=== PATIENT | male | born 2000 | race African-American/Black ===

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

== ENCOUNTER 2023-02-03 18:25 | Emergency (ER) | payer BC, OTHER ==
[~2023-02-03] VITALS: Ht 180.3 cm; Wt 79.0 kg
[~2023-02-03 18:25] MED LIST: BICT1TAB3; CIPR500S3 MT; METR-167 MT
[2023-02-03 18:34] VITALS: O2SAT 99
[2023-02-03] MEDS ORDERED: IBUPROFEN 600MG TABLET PO ONE (20:00)
[2023-02-03 20:07] VITALS: BP 144/91
[2023-02-03 20:39] LABS: BASOPHILS % 0.3 % (0.0-2.0); EOSINOPHILS % 1.2 % (0.0-5.0); HEMATOCRIT. 48.4 % (42.0-52.0); HEMOGLOBIN. 16.2 g/dL (14.0-18.0); LYMPHOCYTES % 38.5 % (20.0-50.0); MEAN CORPUSCULAR HEMOGLOBIN 29.1 pg (28.0-32.0); MEAN CORPUSCULAR HGB CONC 33.4 g/dL (31.0-37.0); MEAN CORPUSCULAR VOLUME 87.2 fL (80.0-94.0); MEAN PLATELET VOLUME 8.9 fl (7.4-10.4); MONOCYTES % 12.4 % (2.0-8.0); NEUTROPHILS % 47.6 % (40.0-76.0); PLATELET 301 x1000/uL (130-400); RED BLOOD CELL COUNT 5.55 mill/uL (4.7-6.1); RED CELL DISTRIBUTION WIDTH 13.8 % (11.6-14.6); WHITE BLOOD COUNT 8.2 x1000/uL (4.5-11.0)
[2023-02-03 20:48] LABS: CHLORIDE 104 mEq/L (98-107); INDEX HEMOLYSI 1 (1-3); INDEX ICTERIC 1 (1-4); INDEX LIPEMIC 1 (1-3); POTASSIUM 3.6 mEq/L (3.5-5.1); SODIUM 137 mEq/L (136-145)
[2023-02-03 20:56] LABS: ALANINE AMINOTRANSFERASE 29 IU/L (13-61); ALBUMIN 4.4 g/dL (3.4-5.0); ASPARTATE AMINOTRANSFERASE 23 IU/L (15-37); CALCIUM 9.6 mg/dL (8.5-10.1); CARBON DIOXIDE 27 mEq/L (21-32); CREATININE 1.2 mg/dL (0.6-1.3); GLUCOSE 92 mg/dL (70-105); PROTEIN TOTAL 8.7 g/dL (6.0-8.3); TROPONIN I HIGH SENSITIVITY 8 ng/L (<78); UREA NITROGEN BLOOD 9 mg/dL (7-21)
[2023-02-03] MEDS ORDERED: ONDANSETRON 4MG ODT PO ONE (21:30)
[2023-02-03 23:38] LABS: TROPONIN I HIGH SENSITIVITY 7 ng/L (<78)
[2023-02-04] MEDS ORDERED: IBUP-2029 MT (00:18)
[2023-02-04 00:33] VITALS: PULSE 104; RESP 19; TEMP 98.6
== END 2023-02-04 00:36 | disposition home or self-care (01) ==
LOC: ER 18:25
DX: R07.9 Chest pain, unspecified (principal); M25.512 Pain in left shoulder; F32.A Depression, unspecified; K21.9 Gastro-esophageal reflux disease without esophagitis
CPT/HCPCS: 99285; 71045; 80053; 85025; 84484; 36415; 73030; 93005; Q0162